=== PATIENT | female | born 1995 | race Caucasian/White ===

== ENCOUNTER 2023-06-30 09:02 | Emergency (ER) | payer OTHER, BC ==
[2023-06-30 09:27] VITALS: BMI 31.6
[2023-06-30] MEDS ORDERED: ACETAMINOPHEN 325 MG TABLET (FP) ONE (09:53)
[2023-06-30] MEDS: ACETAMINOPHEN 500 MG TABLET (FP) PO ONE (09:55)
[2023-06-30 10:29] LABS: THROAT:GRP A STREP NOT DETECTED (NOTDETECTED)
[2023-06-30 11:24] VITALS: BP 133/70; PULSE 91; RESP 18; TEMP 98.4
== END 2023-06-30 11:43 | disposition home or self-care (01) ==
LOC: JER 09:02
DX: R51.9 Headache, unspecified (principal); H92.01 Otalgia, right ear; J02.9 Acute pharyngitis, unspecified; R05.9 Cough, unspecified; R10.30 Lower abdominal pain, unspecified; R11.10 Vomiting, unspecified; J06.9 Acute upper respiratory infection, unspecified; Z20.822 Contact with and (suspected) exposure to COVID-19
CPT/HCPCS: 0241U-QW; 87651; 99283-25

== ENCOUNTER 2023-08-01 08:44 | Emergency (ER) | payer BC, OTHER ==
[2023-08-01 09:00] VITALS: TEMP 98.4; BMI 32.9
[2023-08-01] MEDS ORDERED: ACETAMINOPHEN INJECTION 100 ML IVPB ONE (09:13)
[2023-08-01] MEDS: SODIUM CHLORIDE 0.9% 500 ML INFUS.BAG IV ONE (09:38)
[2023-08-01] MEDS: ACETAMINOPHEN 1000 MG/100 ML BAG IVPB ONE (09:38)
[2023-08-01] MEDS: SODIUM CHLORIDE FOR INHALATION 3 ML VIAL.NEB IH ONE (09:38)
[2023-08-01 10:52] VITALS: BP 106/60; PULSE 83; RESP 18
== END 2023-08-01 11:27 | disposition home or self-care (01) ==
LOC: JERFT 08:44
PROC: 3E033NZ Introduction of Analgesics, Hypnotics, Sedatives into Peripheral Vein, Percutaneous Approach (ICD-10-PCS; principal; 2023-08-01)
DX: O99.512 Diseases of the respiratory system complicating pregnancy, second trimester (principal); J06.9 Acute upper respiratory infection, unspecified; O26.892 Other specified pregnancy related conditions, second trimester; R07.0 Pain in throat; R05.9 Cough, unspecified; R51.9 Headache, unspecified; R07.9 Chest pain, unspecified; R09.81 Nasal congestion; Z20.822 Contact with and (suspected) exposure to COVID-19
CPT/HCPCS: 0241U-QW; 93005; 93010; 99284-25; J0131

== ENCOUNTER 2023-11-25 08:40 | Inpatient (IN) | payer BC, OTHER ==
[2023-11-25] MEDS ORDERED: ACETAMINOPHEN 500 MG TABLET (FP) ONE (10:14)
[2023-11-25] MEDS: ACETAMINOPHEN 500 MG TABLET (FP) PO ONE ×2 (10:15→18:47)
[2023-11-25 11:14] LABS: BASO % 0.2 % (0-2.0); EOS % 0.4 % (0-4.5); HEMATOCRIT 38.5 % (32.4-45.2); HEMOGLOBIN 13.1 GM/dL (10.7-15.3); LYMPH % 19.4 % (8-40); MCH 30.2 pg (25.7-33.7); MEAN CELL VOLUME 88.8 fl (80-96); MONO % 8.6 % (3.8-10.2); NEUT % 71.4 % (42.8-82.8); PLATELET COUNT 261 10^3/uL (134-434); RBC 4.33 M/mm3 (3.60-5.2); RDW 12.8 % (11.6-15.6); RETICULOCYTES 2.27 % (0.5-1.5); WHITE BLOOD COUNT 13.4 K/mm3 (4.0-10.0)
[2023-11-25 11:16] LABS: EPI CELLS >36 /uL (0-25.1); HYALINE CASTS 1 /uL (0-3.1); PH,URINE 5.5 (5.0-8.0); URINE APPEARANCE CLEAR; URINE BACTERIA 1180 /uL (0-1359); URINE BILIRUBIN NEGATIVE (NEGATIVE); URINE COLOR YELLOW; URINE GLUCOSE (UA) NEGATIVE (NEGATIVE); URINE KETONE 1+ (NEGATIVE); URINE LEUK ESTERASE 1+ (NEGATIVE); URINE NITRITE NEGATIVE (NEGATIVE); URINE PROTEIN NEGATIVE (NEGATIVE); URINE RBC 24 /uL (0-23.9); URINE WBC 86 /uL (0-25.8)
[2023-11-25 11:35] LABS: POTASSIUM 3.8 mmol/L (3.5-5.1)
[2023-11-25 11:38] LABS: ALBUMIN 2.8 g/dl (3.4-5.0); BLOOD UREA NITROGEN 6.8 mg/dL (7-18); CALCIUM 9.4 mg/dL (8.5-10.1)
[2023-11-25 11:41] LABS: CREATININE 0.5 mg/dL (0.55-1.3); URIC ACID 3.4 mg/dL (2.6-7.2)
[2023-11-25 11:43] LABS: BILIRUBIN,TOTAL 0.5 mg/dL (0.2-1); TOT PROT 6.8 g/dl (6.4-8.2)
[2023-11-25] MEDS ORDERED: BUTORPHANOL TARTRATE 1 MG/ML VIAL IVPB ONE (12:21)
[2023-11-25] MEDS: ELECTROLYTE-148 SOLN 1,000 ML IV SCH (13:10)
[2023-11-25] MEDS ORDERED: ACETAMINOPHEN INJECTION 100 ML IVPB ONE (13:35)
[2023-11-25] MEDS: ACETAMINOPHEN 1000 MG/100 ML BAG IVPB ONE (13:38)
[2023-11-25] MEDS ORDERED: BETAMET ACET/BETAMET NA PH 30 MG/5 ML VIAL ONE (14:28)
[2023-11-25] MEDS ORDERED: AMPICILLIN SODIUM 2 GM VIAL ONE (14:28)
[2023-11-25] MEDS: BETAMET ACET/BETAMET NA PH 30 MG/5 ML VIAL IM STA (14:30)
[2023-11-25] MEDS: AMPICILLIN - 2 GM in SODIUM CHLORIDE 100 ML IVPB ONE (14:35)
[2023-11-25 15:02] VITALS: BMI 33.3
[2023-11-25 15:30] LABS: SYPHILIS W/ RPR CONF NON-REACTIVE (NONREACTIVE)
[2023-11-25 15:58] LABS: HIV INTERPRETATION NEGATIVE (NEGATIVE)
[2023-11-25 18:36] LABS: INR 0.98 (0.83-1.09); PROTHROMBIN TIME (PATIENT) 11.1 SEC (9.7-13.0)
[2023-11-25 18:38] LABS: ACTIVATED PTT 26.1 SECONDS (25.2-36.5)
[2023-11-25] MEDS: BUTORPHANOL TARTRATE 2 MG/ML VIAL IVPB ONE (23:00)
[2023-11-25] MEDS: PROMETHAZINE HCL 25 MG/1 ML VIAL IVPB ONE (23:00)
[2023-11-26 08:16] LABS: BASO % 0.2 % (0-2.0); HEMATOCRIT 35.4 % (32.4-45.2); HEMOGLOBIN 12.2 GM/dL (10.7-15.3); LYMPH % 8.9 % (8-40); MCH 30.7 pg (25.7-33.7); MCHC 34.3 g/dl (32.0-36.0); MEAN CELL VOLUME 89.4 fl (80-96); MEAN PLT VOLUME 8.3 fl (7.5-11.1); MONO % 3.8 % (3.8-10.2); NEUT % 87.1 % (42.8-82.8); PLATELET COUNT 254 10^3/uL (134-434); RBC 3.96 M/mm3 (3.60-5.2)
[2023-11-26 08:21] LABS: POTASSIUM 4.2 mmol/L (3.5-5.1)
[2023-11-26 08:23] LABS: CALCIUM 9.2 mg/dL (8.5-10.1)
[2023-11-26 08:24] LABS: ALBUMIN 2.6 g/dl (3.4-5.0); BLOOD UREA NITROGEN 7.6 mg/dL (7-18)
[2023-11-26 08:26] LABS: URIC ACID 3.3 mg/dL (2.6-7.2)
[2023-11-26 08:27] LABS: CREATININE 0.6 mg/dL (0.55-1.3)
[2023-11-26 08:28] LABS: BILIRUBIN,TOTAL 0.4 mg/dL (0.2-1); TOT PROT 6.4 g/dl (6.4-8.2)
[2023-11-26 12:25] LABS: HEPATITIS B SURFACE AG MATERN NON-REACTIVE (NONREACTIVE)
[2023-11-26] MEDS: BETAMET ACET/BETAMET NA PH 30 MG/5 ML VIAL IM ONE (19:56)
[2023-11-27 08:22] LABS: HEMATOCRIT 35.8 % (32.4-45.2); HEMOGLOBIN 12.5 GM/dL (10.7-15.3); MCH 30.5 pg (25.7-33.7); MCHC 34.8 g/dl (32.0-36.0); MEAN CELL VOLUME 87.7 fl (80-96); MEAN PLT VOLUME 7.9 fl (7.5-11.1); PLATELET COUNT 280 10^3/uL (134-434); RBC 4.08 M/mm3 (3.60-5.2); RDW 13.1 % (11.6-15.6); WHITE BLOOD COUNT 16.9 K/mm3 (4.0-10.0)
[2023-11-27 08:46] LABS: ALBUMIN 2.8 g/dl (3.4-5.0)
[2023-11-27 08:48] LABS: BILIRUBIN,DIRECT 0.2 mg/dL (0.0-0.2)
[2023-11-27 08:51] LABS: BILIRUBIN,TOTAL 0.5 mg/dL (0.2-1); TOT PROT 6.9 g/dl (6.4-8.2)
[2023-11-27 09:41] LABS: ANISOCYTOSIS 2+; MACROCYTOSIS 0
[2023-11-28 07:06] LABS: BASO % 0.2 % (0-2.0); EOS % 0.5 % (0-4.5); HEMATOCRIT 34.1 % (32.4-45.2); HEMOGLOBIN 11.6 GM/dL (10.7-15.3); LYMPH % 21.8 % (8-40); MCH 30.5 pg (25.7-33.7); MEAN CELL VOLUME 89.7 fl (80-96); MEAN PLT VOLUME 7.8 fl (7.5-11.1); MONO % 9.5 % (3.8-10.2); PLATELET COUNT 243 10^3/uL (134-434); RDW 13.1 % (11.6-15.6); WHITE BLOOD COUNT 12.9 K/mm3 (4.0-10.0)
[2023-11-28 07:29] LABS: POTASSIUM 3.7 mmol/L (3.5-5.1)
[2023-11-28 07:32] LABS: ALBUMIN 2.6 g/dl (3.4-5.0); BLOOD UREA NITROGEN 6.6 mg/dL (7-18); CALCIUM 8.6 mg/dL (8.5-10.1)
[2023-11-28 07:35] LABS: CREATININE 0.5 mg/dL (0.55-1.3)
[2023-11-28 07:36] LABS: BILIRUBIN,TOTAL 0.5 mg/dL (0.2-1); TOT PROT 6.2 g/dl (6.4-8.2)
[2023-11-29 10:52] LABS: HEMATOCRIT 37.5 % (32.4-45.2); HEMOGLOBIN 12.9 GM/dL (10.7-15.3); MCH 30.4 pg (25.7-33.7); MCHC 34.5 g/dl (32.0-36.0); MEAN CELL VOLUME 88.3 fl (80-96); MEAN PLT VOLUME 7.8 fl (7.5-11.1); PLATELET COUNT 270 10^3/uL (134-434); RBC 4.24 M/mm3 (3.60-5.2); RDW 13.1 % (11.6-15.6); WHITE BLOOD COUNT 14.4 K/mm3 (4.0-10.0)
[2023-11-29 11:31] LABS: POTASSIUM 3.7 mmol/L (3.5-5.1)
[2023-11-29 11:33] LABS: CALCIUM 9.1 mg/dL (8.5-10.1)
[2023-11-29 11:34] LABS: ALBUMIN 2.6 g/dl (3.4-5.0); BLOOD UREA NITROGEN 7.8 mg/dL (7-18)
[2023-11-29 11:37] LABS: CREATININE 0.5 mg/dL (0.55-1.3)
[2023-11-29 11:38] LABS: BILIRUBIN,TOTAL 0.5 mg/dL (0.2-1)
[2023-11-29 11:39] LABS: TOT PROT 6.5 g/dl (6.4-8.2)
[2023-11-30 09:02] LABS: HEMATOCRIT 40.3 % (32.4-45.2); HEMOGLOBIN 13.9 GM/dL (10.7-15.3); MCH 30.7 pg (25.7-33.7); MCHC 34.5 g/dl (32.0-36.0); MEAN CELL VOLUME 88.9 fl (80-96); PLATELET COUNT 295 10^3/uL (134-434); RBC 4.54 M/mm3 (3.60-5.2); RDW 13.1 % (11.6-15.6); WHITE BLOOD COUNT 15.1 K/mm3 (4.0-10.0)
[2023-11-30 09:28] LABS: POTASSIUM 4.7 mmol/L (3.5-5.1)
[2023-11-30 09:30] LABS: ALBUMIN 2.8 g/dl (3.4-5.0); BLOOD UREA NITROGEN 7.1 mg/dL (7-18); CALCIUM 9.3 mg/dL (8.5-10.1); MAGNESIUM 1.8 mg/dL (1.8-2.4)
[2023-11-30 09:33] LABS: CREATININE 0.5 mg/dL (0.55-1.3)
[2023-11-30 09:35] LABS: BILIRUBIN,TOTAL 0.5 mg/dL (0.2-1); TOT PROT 6.8 g/dl (6.4-8.2)
[2023-11-30 12:07] LABS: CMV IgM < 30.0 AU/mL (0.0-29.9)
[2023-11-30] MEDS: BETAMET ACET/BETAMET NA PH 30 MG/5 ML VIAL IM STA (13:31)
[2023-11-30] MEDS: DINOPROSTONE 10 MG VAGINAL SUPPOSITORY VG ONE (20:03)
[2023-12-01] MEDS ORDERED: OXYTOCIN 30 UNITS in 0.9% NS 30 UNIT/500 ML INFUS.BAG IVPB ONE (11:25)
[2023-12-01] MEDS: OXYTOCIN 30 UNITS in 0.9% NS 30 UNIT/500 ML INFUS.BAG IVPB SCH (11:35)
[2023-12-01 15:09] LABS: ALBUMIN % 27.6 % (.); ALPHA-1 FOR UPE 4.1 % (.); TOTAL PROTEIN, URINE 4.9 mg/dL (Not Estab.)
[2023-12-01] MEDS ORDERED: FENTANYL/BUPIVACAINE/NS/PF - PCEA - 50 ML DISP.SYRIN EP ONE (18:50)
[2023-12-01] MEDS ORDERED: SODIUM CHLORIDE 100 ML IVPB ONE (19:15)
[2023-12-01] MEDS ORDERED: AMPICILLIN SODIUM 2 GM VIAL ONE (19:15)
[2023-12-01] MEDS: AMPICILLIN SODIUM 2 GM VIAL IVPB ONE (19:15)
[2023-12-01] MEDS ORDERED: BUPIVACAINE HCL/PF 0.25% (2.5MG/ML) 10 ML VIAL ONE (19:26)
[2023-12-01] MEDS ORDERED: NALOXONE HCL 0.4 MG/ML VIAL IVPUSH PRN (19:48)
[2023-12-01] MEDS: FENTANYL/BUPIVACAINE/NS/PF - PCEA - 50 ML DISP.SYRIN EP SCH (19:50)
[2023-12-01] MEDS ORDERED: AMPICILLIN SODIUM 1 GM VIAL ONE (23:20)
[2023-12-01] MEDS: AMPICILLIN - 1 GM in SODIUM CHLORIDE 100 ML IVPB SCH (23:25)
[2023-12-02] MEDS ORDERED: FENTANYL/BUPIVACAINE/NS/PF - PCEA - 50 ML DISP.SYRIN EP ONE ×2 (00:23→04:55)
[2023-12-02] MEDS ORDERED: AMPICILLIN SODIUM 1 GM VIAL ONE ×2 (03:14→06:25)
[2023-12-02] MEDS ORDERED: LIDOCAINE HCL 1% PRESERVATIVE FREE - 30ML VIAL ONE (07:16)
[2023-12-02] MEDS ORDERED: OXYTOCIN 20 UNITS in 0.9% NS 20 UNIT/1,000 ML INFUS.BAG IV ONE ×2 (07:16→11:03)
[2023-12-02] MEDS ORDERED: OXYTOCIN 30 UNITS in 0.9% NS 30 UNIT/500 ML INFUS.BAG IVPB ONE (09:11)
[2023-12-02] MEDS ORDERED: EPINEPHrine/PF 1 MG/1 ML (1:1,000) AMPULE ONE (09:37)
[2023-12-02] MEDS ORDERED: LIDOCAINE HCL/PF 2% SDV 5ML VIAL ONE (09:37)
[2023-12-02] MEDS ORDERED: morphine SULFATE/PF 1 MG/2 ML (2cc Syringe - QUVA) ONE (09:38)
[2023-12-02] MEDS ORDERED: FENTANYL CITRATE/PF 50 MCG/ML VIAL ONE ×4 (09:38→10:23)
[2023-12-02] MEDS ORDERED: DEXAMETHASONE SOD PHOSPHATE 4 MG/1 ML VIAL ONE (09:40)
[2023-12-02] MEDS ORDERED: PHENYLEPHRINE HCL 10 MG/1 ML SINGLE DOSE VIAL ONE (09:40)
[2023-12-02] MEDS ORDERED: OXYTOCIN 10 UNITS/ML VIAL ONE ×2 (09:40→10:32)
[2023-12-02] MEDS ORDERED: METOCLOPRAMIDE HCL INJECTION 10 MG/2 ML VIAL ONE (09:40)
[2023-12-02] MEDS ORDERED: ONDANSETRON 4 MG/2 ML VIAL ONE (09:40)
[2023-12-02] MEDS ORDERED: ceFAZolin SODIUM 1 GM VIAL ONE (09:40)
[2023-12-02] MEDS ORDERED: PROPOFOL 20 ML ONE (09:51)
[2023-12-02] MEDS ORDERED: ROCURONIUM BROMIDE 50 MG/5 ML VIAL ONE (09:52)
[2023-12-02] MEDS ORDERED: SUCCINYLCHOLINE CHLORIDE 200 MG/10 ML SYRINGE ONE ×2 (09:54→09:55)
[2023-12-02] MEDS ORDERED: AZITHROMYCIN IVPB 500 MG/250 ML BAG IVPB ONE (10:04)
[2023-12-02] MEDS ORDERED: SUGAMMADEX SODIUM 200 MG/2 ML VIAL ONE ×2 (10:09→10:29)
[2023-12-02] MEDS ORDERED: MIDAZOLAM HCL 2 MG/2 ML SINGLE DOSE VIAL ONE (10:15)
[2023-12-02] MEDS ORDERED: KETOROLAC TROMETHAMINE 30 MG/1 ML VIAL ONE (10:23)
[2023-12-02] MEDS: OXYTOCIN 20 UNITS in 0.9% NS 20 UNIT/1,000 ML INFUS.BAG IV SCH (11:00)
[2023-12-02] MEDS ORDERED: METHYLERGONOVINE MALEATE 0.2 MG/1 ML AMP IM PRN (11:05)
[2023-12-02] MEDS ORDERED: ACETAMINOPHEN 325 MG TABLET (FP) PO PRN (11:05)
[2023-12-02] MEDS ORDERED: IBUPROFEN 800 MG/8 ML IJ IVPB PRN (11:05)
[2023-12-02] MEDS ORDERED: WITCH HAZEL 50% (TUCKS) 40 PAD/JAR PAD TP PRN (11:05)
[2023-12-02] MEDS ORDERED: BENZOCAINE 28 GM HEMORRHOIDAL OINTMENT TP PRN (11:05)
[2023-12-02] MEDS ORDERED: BENZOCAINE 20% 57 GM BOTTLE TP PRN (11:05)
[2023-12-02 11:37] LABS: INR 0.98 (0.83-1.09); PROTHROMBIN TIME (PATIENT) 11.3 SEC (9.7-13.0)
[2023-12-02 11:39] LABS: ACTIVATED PTT 22.5 SECONDS (25.2-36.5)
[2023-12-02] MEDS: SIMETHICONE 80 MG TAB.CHEW (FP) PO PRN (22:05)
[2023-12-02] MEDS: IBUPROFEN 600 MG TABLET (FP) PO PRN (22:06)
[2023-12-02] MEDS ORDERED: oxyCODONE HCL 5 MG TABLET PO PRN (23:05)
[2023-12-03 07:00] LABS: BASO % 0.2 % (0-2.0); EOS % 0.1 % (0-4.5); HEMATOCRIT 31.6 % (32.4-45.2); HEMOGLOBIN 10.8 GM/dL (10.7-15.3); LYMPH % 15.5 % (8-40); MCH 30.4 pg (25.7-33.7); MCHC 34.3 g/dl (32.0-36.0); MEAN CELL VOLUME 88.8 fl (80-96); MEAN PLT VOLUME 8.4 fl (7.5-11.1); MONO % 11.3 % (3.8-10.2); NEUT % 72.9 % (42.8-82.8); PLATELET COUNT 223 10^3/uL (134-434); RBC 3.56 M/mm3 (3.60-5.2); RDW 12.7 % (11.6-15.6); WHITE BLOOD COUNT 18.1 K/mm3 (4.0-10.0)
[2023-12-03] MEDS: PRENATAL VITAMINS W/ FOLIC ACID TABLET (FP) PO SCH (09:22)
[2023-12-03] MEDS ORDERED: BISACODYL 10 MG SUPP.RECT RC PRN (11:05)
[2023-12-04 08:36] LABS: POTASSIUM 3.9 mmol/L (3.5-5.1)
[2023-12-04 08:47] LABS: BILIRUBIN,TOTAL 0.3 mg/dL (0.2-1); BLOOD UREA NITROGEN 12.4 mg/dL (7-18); CALCIUM 8.8 mg/dL (8.5-10.1); TOT PROT 5.6 g/dl (6.4-8.2)
[2023-12-04 08:49] LABS: ALBUMIN 2.3 g/dl (3.4-5.0); CREATININE 0.5 mg/dL (0.55-1.3)
[2023-12-04] MEDS: oxyCODONE HCL 5 MG TABLET PO PRN (17:32)
[2023-12-05 07:00] LABS: BASO % 0.4 % (0-2.0); EOS % 1.1 % (0-4.5); HEMATOCRIT 35.5 % (32.4-45.2); HEMOGLOBIN 12.2 GM/dL (10.7-15.3); LYMPH % 23.8 % (8-40); MCH 30.4 pg (25.7-33.7); MCHC 34.3 g/dl (32.0-36.0); MEAN CELL VOLUME 88.8 fl (80-96); MEAN PLT VOLUME 7.5 fl (7.5-11.1); MONO % 7.9 % (3.8-10.2); NEUT % 66.8 % (42.8-82.8); PLATELET COUNT 290 10^3/uL (134-434); RDW 12.8 % (11.6-15.6); WHITE BLOOD COUNT 13.7 K/mm3 (4.0-10.0)
[2023-12-06 11:50] VITALS: BP 108/69; PULSE 83; RESP 17; TEMP 97.6
== END 2023-12-06 12:05 | disposition home or self-care (01) | DRG 788 ==
LOC: JDEL 08:40 → JLDR 12:45 → J3W 22:31 → JLDR 11-30 18:46 → J3W 12-02 13:40
PROVIDERS: ADMIT Obstetrics & Gynecology; ATTEND Obstetrics & Gynecology
PROC: 3E0P7VZ Introduction of Hormone into Female Reproductive, Via Natural or Artificial Opening (ICD-10-PCS; 2023-11-30)
PROC: 10D00Z1 Extraction of Products of Conception, Low, Open Approach (ICD-10-PCS; principal; 2023-12-02)
PROC: 10907ZC Drainage of Amniotic Fluid, Therapeutic from Products of Conception, Via Natural or Artificial Opening (ICD-10-PCS; 2023-12-02)
DX: O75.89 Other specified complications of labor and delivery (principal); O14.94 Unspecified pre-eclampsia, complicating childbirth; O32.4XX0 Maternal care for high head at term, not applicable or unspecified; R74.8 Abnormal levels of other serum enzymes; D72.829 Elevated white blood cell count, unspecified; R51.9 Headache, unspecified; Z3A.33 33 weeks gestation of pregnancy; Z37.0 Single live birth
CPT/HCPCS: 36415; 76700-TC; 80053; 80076; 81003; 82550; 82570; 82728; 82977; 83010; 83516; 83540; 83550; 83615; 83735; 84100; 84156; 84166; 84550; 85025; 85027; 85045; 85610; 85730; 86038; 86644; 86645; 86664; 86695; 86696; 86705; 86707; 86709; 86780; 86803; 86850; 86900; 86901; 87040; 87340; 87350; 87389; 87517; 87522; 87529; 88307-TC; 93975; 94010; 96372; J0131